=== PATIENT | female | born 1960 | race Caucasian/White ===

== ENCOUNTER → 2016-11-17 | Outpatient (CLI) | payer OTHER ==
--- NOTE | 2016-11-18 09:29 | RAD ---
EXAM DESCRIPTION: Pelvis CLINICAL HISTORY: 56 years Female, PAIN IN LEFT HIP COMPARISON: January 20, 2016 FINDINGS: The bony pelvis is intact with no abnormal soft tissue mass or bony destructive change. No fracture or dislocation or significant hip degenerative arthropathy on either the symptomatic left side or right side is noted. IMPRESSION: Normal pelvis one view. Electronically signed by: Braulio Bustos MD 11/18/2016 9:28 AM CDT
--- NOTE | 2016-11-18 09:29 | RAD ---
EXAM DESCRIPTION: Knee,Left Complete CLINICAL HISTORY: 56 years, Female, PAIN IN LEFT KNEE COMPARISON: January 20, 2016 TECHNIQUE: Four views of the left knee FINDINGS: Four views of the right knee demonstrate marked joint space narrowing and subchondral sclerosis of the medial joint compartment, particularly involving the tibial plateau with mottled lucency of the medial femoral condyle suggesting possibly a osteochondral changes. The lateral joint compartment and patellofemoral compartment are more normal in appearance with mild degenerative lipping. A significant joint effusion is not apparent with a tiny ossific density in the region of the suprapatellar bursa suggesting a very small intra-articular loose body. Little change in comparison to previous study is noted. IMPRESSION: 1. Advanced degenerative changes medial joint compartment with subchondral sclerosis, joint narrowing and mottled medial femoral condylar changes suggesting osteochondral abnormalities with possible tiny intra-articular loose body in the suprapatellar bursa, all unchanged from prior study Electronically signed by: Braulio Bustos MD 11/18/2016 9:27 AM CDT
== END | disposition home or self-care (01) ==
LOC: RAD 08:49
PROVIDERS: ATTEND Orthopaedic Surgery
DX: M25.562 Pain in left knee (principal); M25.552 Pain in left hip

== ENCOUNTER → 2017-01-06 | Outpatient (CLI) | payer OTHER | END | disposition home or self-care (01) | LOC: LAB.O 11:04 | PROVIDERS: ATTEND Orthopaedic Surgery | DX: Z01.818 Encounter for other preprocedural examination (principal) ==